=== PATIENT | male | born 1945 | race Caucasian/White ===

== ENCOUNTER 2020-01-09 07:36 | Inpatient (IN) | payer MEDICARE ==
[~2020-01-09] VITALS: Ht 182.9 cm; Wt 103.1 kg
[2020-01-09 08:54] LABS: CREATININE 1.9 mg/dL (0.5-1.5); POTASSIUM 3.4 mmol/L (3.5-5.1)
[2020-01-09 08:55] LABS: INR 1.71 (0.85-1.15); PARTIAL THROMBOPLASTIN TIME 31.9 SEC (26.3-35.5); PROTHROMBIN TIME 17.6 SEC (9.6-11.6)
[2020-01-09 08:58] LABS: ALBUMIN 2.2 g/dL (3.5-5.0); BILIRUBIN,TOTAL 6.8 mg/dL (0.2-1.0); TOTAL PROTEIN, SERUM 5.6 g/dL (6.0-8.3)
[2020-01-09] MEDS ORDERED: SODIUM CHLORIDE 0.9% 1000ML 1,000 ML IV ONE (09:25)
[2020-01-09 09:51] LABS: BASOPHILS % (AUTO) 0.1 % (0.0-5.0); EOSINOPHILS % (AUTO) 0.4 % (0.0-8.0); HEMATOCRIT 29.4 % (42-54); LYMPHOCYTES % (AUTO) 9.4 % (21.0-51.0); MEAN CORPUSCULAR HEMOGLOBIN 34.3 pg (27.0-33.0); MONOCYTES % (AUTO) 8.8 % (3.0-13.0); PLATELET COUNT (AUTO) 83 K/uL (130-400); RED CELL DISTRIBUTION WIDTH 16.2 % (11.0-15.5); WHITE BLOOD COUNT (AUTO) 6.9 K/uL (4.8-10.8)
[2020-01-09] MEDS ORDERED: CEFTRIAXONE SODIUM 1 GM ONE (10:09)
[2020-01-09] MEDS ORDERED: SODIUM CHLORIDE 0.9% 50 ML IV ONE (10:09)
[2020-01-09 10:40] LABS: B-TYPE NATRIURETIC PEPTIDE 74 pg/mL (0-100)
[2020-01-09 11:04] LABS: APPEARANCE,URINE SL CLOUDY (CLEAR); BILIRUBIN,URINE LARGE (NEGATIVE); COLOR,URINE ORANGE (YELLOW); GLUCOSE, URINE (UA) 100 mg/dL (NEGATIVE); KETONES,URINE 15 mg/dL (NEGATIVE); LEUKOCYTE ESTERASE ,URINE TRACE (NEGATIVE); NITRATE,URINE POSITIVE (NEGATIVE); OCCULT BLOOD,URINE NEGATIVE (NEGATIVE); PROTEIN,URINE 100 mg/dL (NEGATIVE); UROBILINOGEN,URINE >=8.0 mg/dL (0.2-1.0)
[2020-01-09 12:26] LABS: BACTERIA,URINE Few /HPF (None Seen); RBC,URINE 0-1 /HPF (0-1)
[2020-01-09 13:15] VITALS: BP 112/66
[2020-01-09] MEDS ORDERED: VANCOMYCIN PROTOCOL PER PHARMACY IV SCH (14:30)
[2020-01-09] MEDS ORDERED: ALBUMIN (HUMAN) 5% 250 ML IV SCH (14:30)
[2020-01-09] MEDS ORDERED: COMPOUND IV REFRIGERATED 1 EACH IVSOLN MISC PRN (15:15)
[2020-01-09] MEDS ORDERED: POTASSIUM CHLORIDE 10MEQ/100ML 100 ML IV PRN (15:15)
[2020-01-09] MEDS ORDERED: LIDOCAINE HCL-MPF 1% 2ML VIAL IV PRN (15:15)
[2020-01-09] MEDS ORDERED: MAGNESIUM 2GM PREMIX 50ML 50 ML IV PRN (15:15)
[2020-01-09 15:22] LABS: HEMOGLOBIN A1C 3.7 % (4.0-6.0)
[2020-01-09 15:28] LABS: AMPHET/METH SCREEN,URINE NEGATIVE (NEGATIVE); BARBITURATE SCREEN, URINE NEGATIVE (NEGATIVE); BENZODIAZEPINES SCREEN,URINE NEGATIVE (NEGATIVE); CANNABINOID SCREEN,URINE NEGATIVE (NEGATIVE); COCAINE SCREEN,URINE NEGATIVE (NEGATIVE); OPIATE SCREEN,URINE NEGATIVE (NEGATIVE); PHENCYCLIDINE SCREEN,URINE NEGATIVE (NEGATIVE)
[2020-01-09] MEDS ORDERED: VANCOMYCIN 1.5 GM in SODIUM CHLORIDE 0.9% 250 ML IV SCH (15:30)
[2020-01-09 16:00] VITALS: BP 110/77
[2020-01-09 16:04] LABS: % IRON SATURATION 95.1 % (30-44)
[2020-01-09] MEDS: SODIUM CHLORIDE 0.9% 1000ML 1,000 ML IV SCH ×2 (16:27→21:01)
[2020-01-09] MEDS ORDERED: DEXTROSE 5%-LACTATED RINGERS 1,000 ML IV SCH (17:15)
[2020-01-09 20:00] VITALS: BP 102/59
[2020-01-09] MEDS: POTASSIUM CHLORIDE 20 MEQ ERTAB PO PRN (20:08)
[2020-01-09] MEDS: LACTULOSE 20 GM/30 ML UDCUP PO SCH (20:08)
[2020-01-09] MEDS: FAMOTIDINE/PF 20 MG/2 ML VIAL IV SCH (20:08)
[2020-01-09] MEDS ORDERED: LACTULOSE 20 GM/30 ML UDCUP PO SCH (21:00)
[2020-01-09 21:02] LABS: SODIUM,URINE RANDOM < 15 mmol/l (40-220)
[2020-01-09] MEDS: CEFTRIAXONE SODIUM 1 GM IVP SCH (21:02)
[2020-01-09 21:05] LABS: CREATININE,URINE RANDOM 580 mg/dL (30-135)
[2020-01-09] MEDS ORDERED: GLUCAGON 1MG KIT 1 MG ML IM PRN (23:00)
[2020-01-09] MEDS ORDERED: DEXTROSE 50%-WATER 50 ML DISP.SYRIN IV PRN (23:00)
[2020-01-10] VITALS: BP 108/50
[2020-01-10 04:00] VITALS: BP 109/50
[2020-01-10 06:22] LABS: BASOPHILS % (AUTO) 0.2 % (0.0-5.0); EOSINOPHILS % (AUTO) 1.3 % (0.0-8.0); HEMATOCRIT 27.5 % (42-54); LYMPHOCYTES % (AUTO) 13.2 % (21.0-51.0); MEAN CORPUSCULAR HEMOGLOBIN 33.7 pg (27.0-33.0); MEAN CORPUSCULAR HGB CONC 34.5 g/dL (32.0-36.0); MEAN CORPUSCULAR VOLUME 97.5 fL (79-99); MONOCYTES % (AUTO) 9.8 % (3.0-13.0); NEUTROPHILS % (AUTO) 74.8 % (40.0-77.0); PLATELET COUNT (AUTO) 69 K/uL (130-400); RED BLOOD CELL COUNT(AUTO) 2.82 MIL/uL (4.50-6.20); RED CELL DISTRIBUTION WIDTH 15.9 % (11.0-15.5)
[2020-01-10 06:34] LABS: INR 1.8 (0.85-1.15); PROTHROMBIN TIME 18.5 SEC (9.6-11.6)
[2020-01-10 06:54] LABS: ALBUMIN 1.8 g/dL (3.5-5.0); CREATININE 1.8 mg/dL (0.5-1.5); POTASSIUM 3.5 mmol/L (3.5-5.1); TOTAL PROTEIN, SERUM 4.6 g/dL (6.0-8.3)
[2020-01-10] MEDS: SODIUM CHLORIDE 0.9% 1000ML 1,000 ML IV SCH (07:01)
[2020-01-10 08:00] VITALS: BP 91/51
[2020-01-10] MEDS ORDERED: ENOXAPARIN SODIUM 30 MG/0.3 ML SQ SCH (09:00)
[2020-01-10] MEDS: CEFTRIAXONE SODIUM 1 GM IVP SCH ×2 (09:54→21:25)
[2020-01-10] MEDS: LACTULOSE 20 GM/30 ML UDCUP PO SCH ×3 (09:54→21:25)
[2020-01-10] MEDS: VANCOMYCIN 1GM+NS 250ML 250 ML IV SCH (09:58)
[2020-01-10 12:00] VITALS: BP 106/48
[2020-01-10 16:00] VITALS: BP 105/55
--- NOTE | 2020-01-10 19:00 | NUR ---
CONSENT Consent for Paracentesis obtained per Francisco ADAMS.
--- NOTE | 2020-01-10 19:00 | NUR ---
cm note met with patient and states resides at home alone, currently due to his significant other is at a snf, he is unable to remember which facility she is at. but her name is Madison flores she has been at [facility] in the past, but not there now. son is nidhi Hauser from [place], ph# [phone]. pt states he has a walker, w/c bsc, and hospital bed, no hh, no provider assistance. does have a friend amaris kowalski, but no phone #.and has been weaker lately, discussed snf as an option for pt, states he will think about it, and let cm know. Addendum: 01/10/20 at 1906 by VINICIO BROWN CM Amended: Links added.
[2020-01-10] MEDS: PHYTONADIONE 10 MG/1 ML AMP IM SCH (19:31)
[2020-01-10 20:00] VITALS: BP 108/72
[2020-01-10] MEDS: FAMOTIDINE/PF 20 MG/2 ML VIAL IV SCH (21:25)
[2020-01-11] VITALS (12 sets, daily range): BP systolic 90–115; BP diastolic 47–71
--- NOTE | 2020-01-11 03:47 | NUR ---
URINE Urine specimen sent to lab.
[2020-01-11 04:01] LABS: APPEARANCE,URINE SL CLOUDY (CLEAR); BILIRUBIN,URINE LARGE (NEGATIVE); GLUCOSE, URINE (UA) 100 mg/dL (NEGATIVE); KETONES,URINE 5 mg/dL (NEGATIVE); LEUKOCYTE ESTERASE ,URINE NEGATIVE (NEGATIVE); NITRATE,URINE POSITIVE (NEGATIVE); OCCULT BLOOD,URINE NEGATIVE (NEGATIVE); PH,URINE 5.5 (5.0-8.0); PROTEIN,URINE 30 mg/dL (NEGATIVE)
[2020-01-11] MEDS: VANCOMYCIN 1GM+NS 250ML 250 ML IV SCH ×2 (04:01→20:57)
[2020-01-11 04:04] LABS: COLOR,URINE BROWN (YELLOW)
[2020-01-11 04:11] LABS: BACTERIA,URINE None Seen /HPF (None Seen); RBC,URINE 0-1 /HPF (0-1)
[2020-01-11 04:12] LABS: MUCUS,URINE Rare LPF (None Seen); SQUAMOUS EPITHELIAL CELL,UR Few /HPF (0-2)
[2020-01-11 06:04] LABS: BASOPHILS % (AUTO) 0.2 % (0.0-5.0); EOSINOPHILS % (AUTO) 1.7 % (0.0-8.0); HEMATOCRIT 26.2 % (42-54); LYMPHOCYTES % (AUTO) 13.5 % (21.0-51.0); MEAN CORPUSCULAR HEMOGLOBIN 34.8 pg (27.0-33.0); MEAN CORPUSCULAR HGB CONC 35.5 g/dL (32.0-36.0); MEAN CORPUSCULAR VOLUME 98.1 fL (79-99); MONOCYTES % (AUTO) 12.5 % (3.0-13.0); NEUTROPHILS % (AUTO) 71.7 % (40.0-77.0); PLATELET COUNT (AUTO) 64 K/uL (130-400); RED BLOOD CELL COUNT(AUTO) 2.67 MIL/uL (4.50-6.20); RED CELL DISTRIBUTION WIDTH 16.1 % (11.0-15.5); WHITE BLOOD COUNT (AUTO) 4.7 K/uL (4.8-10.8)
[2020-01-11 06:19] LABS: ALBUMIN 1.7 g/dL (3.5-5.0); BILIRUBIN,TOTAL 3.8 mg/dL (0.2-1.0); CREATININE 1.7 mg/dL (0.5-1.5); MAGNESIUM 1.3 mg/dL (1.80-2.40); PHOSPHORUS 2.8 mg/dL (2.5-4.9); POTASSIUM 3.3 mmol/L (3.5-5.1); TOTAL PROTEIN, SERUM 4.5 g/dL (6.0-8.3); URIC ACID 5.9 mg/dL (2.6-7.2)
[2020-01-11] MEDS: POTASSIUM CHLORIDE 20 MEQ ERTAB PO PRN ×3 (06:24→16:40)
[2020-01-11] MEDS: MAGNESIUM 2GM PREMIX 50ML 50 ML IV SCH ×2 (06:32→09:11)
[2020-01-11 06:42] LABS: % IRON SATURATION 92.7 % (30-44)
[2020-01-11 06:57] LABS: INR 1.8 (0.85-1.15); PARTIAL THROMBOPLASTIN TIME 36.5 SEC (26.3-35.5); PROTHROMBIN TIME 18.5 SEC (9.6-11.6)
--- NOTE | 2020-01-11 08:00 | NUR ---
NOTE AAOX3. DENIES PAIN BUT REPORTS DISCOMFORT TO RIGHT KNEE. HE CAME IN WITH ANASARCA. DX CIRRHOSIS AND ALSO WITH ASCITES. 4+ PITTING EDEMA BLE FROM THIGHS TO FEET. STATES HE HAS BEEN DECLINING FOR LAST FEW MONTHS, STARTING WITH RIGHT KNEE PAIN THEN STARTING TO USE CANE TO USE WALKER AND NOW BEDRIDDEN. STATES HE CONSUMED ALCOHOL BUT STOPPED ABOUT 6 MONTHS AGO. NO DISTRESS OR SOB. BBS CLEAR BUT ASCITES INTERFERES WITH HIS BREATHING.
[2020-01-11] MEDS: LACTULOSE 20 GM/30 ML UDCUP PO SCH ×3 (09:00→20:58)
[2020-01-11] MEDS: FOLIC ACID/VITAMIN B COMP W-C 1 CAP TAB PO SCH (09:05)
[2020-01-11] MEDS: CEFTRIAXONE SODIUM 1 GM IVP SCH ×2 (09:05→20:58)
--- NOTE | 2020-01-11 11:22 | NUR ---
NOTE SPOKE TO DR MAYA RIVAS ABOUT CONSULT. HE TOLD ME HE HAD SPOKE TO SOMEONE YESTERDAY AND ORDERED ABD US AND LABS. SAYS THAT CIRRHOSIS IS AN OUTPATIENT WORKUP AND THAT HE WILL SEE THE ULTRASOUND RESULTS AND LAB WORK RESULTS AND CALL ME BACK LATER.
[2020-01-11] MEDS: PHYTONADIONE 10 MG/1 ML AMP IM SCH (13:30)
--- NOTE | 2020-01-11 14:00 | NUR ---
NOTE DR MORTON PERFORMED PARACENTESIS AT BEDSIDE. PATIENT TOLERATED PROCEDURE WITH MINNIMAL DISCOMFORT OR PAIN. 4.6 LITERS REMOVED. PATIENT WITH SBP STEADY IN THE 90'S. BEDBOUND. NO OTHER PROBLEMS VOICED AT THIS TIME. DR MORTON ORDERED TESTING TO BE DONE ON ASCITES FLUID.
[2020-01-11] MEDS ORDERED: ALBUMIN (HUMAN) 25% 50 ML IV SCH ×2 (14:45→15:30)
--- NOTE | 2020-01-11 15:45 | NUR ---
CM NOTE NEW ORDER FOR SNF FOR REHAB. MEET WITH PATIENT IN ROOM. PER PATIENT, "IF IT WASNT FOR MY KNEE PAIN, ID BE WALKING AND I WOULD NOT HAVE TO GO TO SNF". PATIENT INFORMED OF MONITORING FOR CIRRHOSIS OF LIVER REQUIRED SINCE PARACENTESIS NEEDED AND +4 WEEPING PITTING EDEMA NOTED TO BLE. OPTIONS BASED ON INSURANCE FOR SNF GIVEN TO PATIENT. PER PATIENT, WILL DISCUSS OPTIONS WITH SON AND WILL MADE DECISION. I WILL FOLLOW UP WITH PATIENT. INFORMED THAT IF HE MADE DECISION HE CAN TELL PRIMARY NURSE WELL. DL ADAMS, PRIMARY NURSE, AWARE TO CALL ME WITH SNF OPTIONS IF PATIENT MAKES DECISION.
[2020-01-11] MEDS ORDERED: ALBUMIN (HUMAN) 25% 400 ML IV ONE (16:30)
[2020-01-11] MEDS ORDERED: ALBUMIN (HUMAN) 25% 200 ML IV ONE (16:30)
[2020-01-11] MEDS: THIAMINE HCL 100 MG TABLET PO SCH (16:39)
[2020-01-11 16:41] LABS: GLUCOSE,BODY FLUID 123 mg/dL (1-40)
[2020-01-11 16:51] LABS: ALBUMIN,BODY FLUID < 0.6 g/dL
[2020-01-11 18:18] LABS: APPEARANCE BODY FLUID SLIGHTLY CLOUDY (CLEAR); COLOR,BODY FLUID YELLOW (LT YELLOW); SPECIMENTYPE,BODY FLUID PLEURAL; TOTAL VOLUME,BODY FLUID 885 mL
[2020-01-11 18:19] LABS: BODY FLUID RBC 98 /cu. mm.; BODY FLUID WBC 16 /cu. mm.
[2020-01-11 18:58] LABS: BF LYMPHOCYTE 30 %; BF MESOTHELIAL 2 %; BF MONOCYTE 7 %
--- NOTE | 2020-01-11 19:00 | NUR ---
SITE Paracentesis puncture site oozing serous fluid,covered with 4x4 gauze and paper tape.
[2020-01-11] MEDS: FAMOTIDINE/PF 20 MG/2 ML VIAL IV SCH (20:58)
--- NOTE | 2020-01-11 22:52 | NUR ---
NAUSEA Pt c/o of nausea,nikki Tai Np.
--- NOTE | 2020-01-11 22:55 | NUR ---
BETH mao Np called back,updated on pt.s status.
[2020-01-11] MEDS ORDERED: ONDANSETRON HCL 4 MG/2 ML VIAL IVP PRN (23:00)
[2020-01-12] VITALS (7 sets, daily range): BP systolic 95–112; BP diastolic 60–70
--- NOTE | 2020-01-12 00:15 | NUR ---
FF UP Pt asleep now,no signs of distress noted.
--- NOTE | 2020-01-12 01:24 | NUR ---
TURN Pt repositioned to his rt side,denies pain or discomfort.
--- NOTE | 2020-01-12 01:39 | NUR ---
JASON CARPENTER Late Entry-Spoke to brenda from pharmacy on 01/10/2020 re Jason carpenter,he said to draw trough on 01/12/2020 at 3 pm.
[2020-01-12 06:08] LABS: BASOPHILS % (AUTO) 0.5 % (0.0-5.0); EOSINOPHILS % (AUTO) 2.1 % (0.0-8.0); HEMATOCRIT 21.9 % (42-54); MEAN CORPUSCULAR HEMOGLOBIN 34.2 pg (27.0-33.0); MEAN CORPUSCULAR HGB CONC 34.7 g/dL (32.0-36.0); MEAN CORPUSCULAR VOLUME 98.6 fL (79-99); MONOCYTES % (AUTO) 16.1 % (3.0-13.0); NEUTROPHILS % (AUTO) 67.3 % (40.0-77.0); PLATELET COUNT (AUTO) 43 K/uL (130-400); RED BLOOD CELL COUNT(AUTO) 2.22 MIL/uL (4.50-6.20); RED CELL DISTRIBUTION WIDTH 15.9 % (11.0-15.5); WHITE BLOOD COUNT (AUTO) 1.9 K/uL (4.8-10.8)
[2020-01-12 06:27] LABS: ALBUMIN 2.6 g/dL (3.5-5.0); BILIRUBIN,TOTAL 3.1 mg/dL (0.2-1.0); CREATININE 1.3 mg/dL (0.5-1.5); MAGNESIUM 1.8 mg/dL (1.80-2.40); POTASSIUM 3.6 mmol/L (3.5-5.1); TOTAL PROTEIN, SERUM 4.4 g/dL (6.0-8.3)
[2020-01-12] MEDS: POTASSIUM CHLORIDE 10% ELIXIR 20 MEQ/15 ML UDCUP PO PRN (06:33)
[2020-01-12] MEDS: MAGNESIUM 2GM PREMIX 50ML 50 ML IV SCH (06:34)
[2020-01-12] MEDS: THIAMINE HCL 100 MG TABLET PO SCH (09:53)
[2020-01-12] MEDS: CEFTRIAXONE SODIUM 1 GM IVP SCH ×2 (09:53→20:35)
[2020-01-12] MEDS: LACTULOSE 20 GM/30 ML UDCUP PO SCH ×3 (09:54→20:34)
[2020-01-12] MEDS: FOLIC ACID/VITAMIN B COMP W-C 1 CAP TAB PO SCH (09:55)
[2020-01-12 10:12] LABS: HEPATITIS A ANTIBODY IGM Negative (Negative); HEPATITIS B CORE IGM Negative (Negative); HEPATITIS Bs ANTIGEN SCREEN P Negative (Negative)
--- NOTE | 2020-01-12 11:30 | NUR ---
CM NOTE TRIED TO MEET WITH PATIENT IN ROOM ABOUT IF DECISION FOR SNF MADE, PATIENT ASLEEP. WILL FOLLOW UP LATER.
--- NOTE | 2020-01-12 16:00 | NUR ---
CM NOTE MEET WITH PATIENT IN ROOM. PER PATIENT, NO DECISION HAS BEEN MADE AND IS LEANING MORE ON GOING HOME. PATIENT UNABLE TO AMBULATE TO BATHROOM OR GET OOB TO CHAIR ON HIS OWN. PATIENT CONTINUES WITH +4 PITTING EDEMA TO BLE. IN SNF AND PATIENT WOULD BE ALONE AT HOME. DISCUSSED NEED FOR ASSISTANCE. PER PATIENT, WILL THINK ABOUT SNF AND WILL DECIDE TOMORROW. CONVERSATIONS BETWEEN PATIENT AND I REPORTED TO PRIMARY NURSE, HELLEN ADAMS. WILL FOLLOW UP WITH PATIENT TOMORROW FOR SNF DECISION.
[2020-01-12] MEDS ORDERED: VANCOMYCIN 1GM+NS 250ML 250 ML IV SCH (16:45)
[2020-01-12] MEDS: FAMOTIDINE/PF 20 MG/2 ML VIAL IV SCH (20:34)
[2020-01-12] MEDS: FUROSEMIDE 40 MG TABLET PO SCH (20:35)
[2020-01-13 04:14] VITALS: BP 112/62
--- NOTE | 2020-01-13 04:41 | NUR ---
EDEMA Pt cont with pitting edema to both legs,pt ahs blisters to rt foot and seeping fluids.Both arms swelling seemed to have subsided slightly.Pt is incontinent of urine and stool.Aleisha care rendered per staff.Repositioned in bed,waffle mattress on.
[2020-01-13 05:32] LABS: BASOPHILS % (AUTO) 0.6 % (0.0-5.0); EOSINOPHILS % (AUTO) 2.3 % (0.0-8.0); HEMATOCRIT 24.9 % (42-54); LYMPHOCYTES % (AUTO) 11.1 % (21.0-51.0); MEAN CORPUSCULAR HEMOGLOBIN 34.3 pg (27.0-33.0); MEAN CORPUSCULAR HGB CONC 34.9 g/dL (32.0-36.0); MONOCYTES % (AUTO) 15.7 % (3.0-13.0); NEUTROPHILS % (AUTO) 69.7 % (40.0-77.0); PLATELET COUNT (AUTO) 52 K/uL (130-400); RED BLOOD CELL COUNT(AUTO) 2.54 MIL/uL (4.50-6.20); RED CELL DISTRIBUTION WIDTH 15.9 % (11.0-15.5); WHITE BLOOD COUNT (AUTO) 3.5 K/uL (4.8-10.8)
[2020-01-13 05:51] LABS: ALBUMIN 2.5 g/dL (3.5-5.0); BILIRUBIN,TOTAL 3.5 mg/dL (0.2-1.0); CREATININE 1.3 mg/dL (0.5-1.5); POTASSIUM 3.1 mmol/L (3.5-5.1); TOTAL PROTEIN, SERUM 4.6 g/dL (6.0-8.3)
[2020-01-13] MEDS: POTASSIUM CHLORIDE 10% ELIXIR 20 MEQ/15 ML UDCUP PO PRN ×3 (06:09→15:11)
[2020-01-13 07:00] VITALS: BP 105/63
[2020-01-13] MEDS ORDERED: ALBUMIN (HUMAN) 25% 400 ML IV ONE (09:00)
[2020-01-13] MEDS: THIAMINE HCL 100 MG TABLET PO SCH (11:01)
[2020-01-13] MEDS: CEFTRIAXONE SODIUM 1 GM IVP SCH ×2 (11:01→21:39)
[2020-01-13] MEDS: FOLIC ACID/VITAMIN B COMP W-C 1 CAP TAB PO SCH (11:01)
[2020-01-13] MEDS: SPIRONOLACTONE 25 MG TAB PO SCH (11:01)
[2020-01-13] MEDS: FUROSEMIDE 40 MG TABLET PO SCH (11:02)
[2020-01-13] MEDS: LACTULOSE 20 GM/30 ML UDCUP PO SCH ×3 (11:02→21:39)
[2020-01-13 12:00] VITALS: BP 113/71
--- NOTE | 2020-01-13 12:00 | NUR ---
CM NOTE MEET WITH PATIENT IN ROOM, PATIENT HAS STATED THAT HE THOUGHT PT WAS DOING SUCH A GREAT JOB WITH HIM THAT HE THINKS HE DOES NOT NEED TO GO TO SNF. SEE PT NOTES REGARDING CARE, PATIENT ONLY ABLE TO DO EDGE OF BED EXERCISES. WILL FOLLOW UP WITH PATIENT TOMORROW. ASKED PERMISSION TO CALL SINCERE, SON FROM OUT OF TOWN TO ASSIST WITH SNF DECISION, PATIENT DENIED. CONVERSATIONS BETWEEN PATIENT AND I REPORTED TO PRIMARY NURSE, HARLEEN ADAMS.
--- NOTE | 2020-01-13 12:45 | NUR ---
1213 went into patients room to give BPCI Letter. Patient was asleep, I placed BPCI Letter on bedside table.
[2020-01-13] MEDS ORDERED: ALBUMIN (HUMAN) 25% 100 ML IV ONE (15:45)
[2020-01-13] MEDS ORDERED: ALBUMIN (HUMAN) 25% 400 ML IV SCH ×2 (15:45→16:45)
[2020-01-13 16:00] VITALS: BP 109/63
--- NOTE | 2020-01-13 16:30 | NUR ---
[facility] CONSULT PATIENT ASSESSED REQUESTED: PATIENT PRESENTS WITH VENOUS ULCER TO RIGHT FOOT DORSAL; [facility] RECOMMENDATIONS SUBMITTED. Addendum: 01/14/20 at 1152 by HUNTER HURD LVN LVN W Amended: Links added.
[2020-01-13 19:00] VITALS: BP 114/49
[2020-01-13] MEDS: FAMOTIDINE/PF 20 MG/2 ML VIAL IV SCH (21:39)
[2020-01-13] MEDS: VANCOMYCIN 1GM+NS 250ML 250 ML IV SCH (21:39)
[2020-01-13 23:00] VITALS: BP 111/65
[2020-01-14 03:00] VITALS: BP 114/64
[2020-01-14 05:54] LABS: BASOPHILS % (AUTO) 0.3 % (0.0-5.0); EOSINOPHILS % (AUTO) 2.7 % (0.0-8.0); HEMATOCRIT 24.5 % (42-54); LYMPHOCYTES % (AUTO) 11.5 % (21.0-51.0); MEAN CORPUSCULAR HEMOGLOBIN 34.3 pg (27.0-33.0); MEAN CORPUSCULAR HGB CONC 34.3 g/dL (32.0-36.0); MONOCYTES % (AUTO) 18.9 % (3.0-13.0); NEUTROPHILS % (AUTO) 65.9 % (40.0-77.0); PLATELET COUNT (AUTO) 49 K/uL (130-400); RED BLOOD CELL COUNT(AUTO) 2.45 MIL/uL (4.50-6.20); RED CELL DISTRIBUTION WIDTH 16.4 % (11.0-15.5)
[2020-01-14 06:05] LABS: ALBUMIN 3.2 g/dL (3.5-5.0); BILIRUBIN,TOTAL 4.2 mg/dL (0.2-1.0); CREATININE 1.4 mg/dL (0.5-1.5); POTASSIUM 3.7 mmol/L (3.5-5.1); TOTAL PROTEIN, SERUM 4.8 g/dL (6.0-8.3)
[2020-01-14] MEDS ORDERED: HONEY 1 APPL/ML TUBE TP PRN (06:15)
[2020-01-14 07:00] VITALS: BP 134/53
[2020-01-14 08:39] LABS: BASOPHILS % (MANUAL) 2 % (0-2); EOSINOPHILS % (MANUAL) 4 % (1-6); LYMPHOCYTES % (MANUAL) 11 % (22-44); MONOCYTES % (MANUAL) 9 % (2-9); SEGMENTED NEUTROPHILS % 74 % (40-70)
[2020-01-14 08:40] LABS: MAN.DIFF COMMENT-IMPRESSION MANUAL DIFFERENTIAL
[2020-01-14] MEDS: LACTULOSE 20 GM/30 ML UDCUP PO SCH ×3 (10:20→20:47)
[2020-01-14] MEDS: CEFTRIAXONE SODIUM 1 GM IVP SCH ×2 (10:20→20:47)
[2020-01-14] MEDS: FOLIC ACID/VITAMIN B COMP W-C 1 CAP TAB PO SCH (10:20)
[2020-01-14] MEDS: FUROSEMIDE 40 MG TABLET PO SCH (10:21)
[2020-01-14] MEDS: SPIRONOLACTONE 25 MG TAB PO SCH (10:21)
[2020-01-14] MEDS: THIAMINE HCL 100 MG TABLET PO SCH (10:21)
[2020-01-14 11:00] VITALS: BP 123/66
[2020-01-14 16:00] VITALS: BP 109/68
--- NOTE | 2020-01-14 17:53 | NUR ---
CM NOTE NEW REFERRAL FOR [facility]. MEET WITH PATIENT IN ROOM, IONA VERBAL CONSENT GIVE. INFORMED ADRIANA EDWARD FROM [facility] ABOUT NEW [facility] REFERRAL, TO MEET WITH PATIENT. CLINICALS AND INJURY FAXED AND RECEIVED. POSSIBLE DC TO [facility] TOMORROW PER DR. ROACH.
--- NOTE | 2020-01-14 18:37 | NUR ---
picc order fax [facility]. called and informed
[2020-01-14 19:51] LABS: INR 2.12 (0.85-1.15); PARTIAL THROMBOPLASTIN TIME 47.5 SEC (26.3-35.5); PROTHROMBIN TIME 21.6 SEC (9.6-11.6)
[2020-01-14 20:00] VITALS: BP 113/67
[2020-01-14] MEDS: VANCOMYCIN 1GM+NS 250ML 250 ML IV SCH (20:47)
[2020-01-14] MEDS: FAMOTIDINE/PF 20 MG/2 ML VIAL IV SCH (20:47)
[2020-01-15] VITALS: BP 110/82
[2020-01-15 04:00] VITALS: BP 128/56
[2020-01-15 08:43] LABS: HEMATOCRIT 24.7 % (42-54); MEAN CORPUSCULAR HEMOGLOBIN 34.7 pg (27.0-33.0); MEAN CORPUSCULAR HGB CONC 34.8 g/dL (32.0-36.0); MEAN CORPUSCULAR VOLUME 99.6 fL (79-99); PLATELET COUNT (AUTO) 57 K/uL (130-400); RED BLOOD CELL COUNT(AUTO) 2.48 MIL/uL (4.50-6.20); RED CELL DISTRIBUTION WIDTH 15.9 % (11.0-15.5); WHITE BLOOD COUNT (AUTO) 4.5 K/uL (4.8-10.8)
[2020-01-15 08:54] LABS: CREATININE 1.4 mg/dL (0.5-1.5); POTASSIUM 3.3 mmol/L (3.5-5.1)
[2020-01-15] MEDS: LACTULOSE 20 GM/30 ML UDCUP PO SCH ×2 (09:00→14:00)
[2020-01-15 09:05] VITALS: BP 111/67
[2020-01-15 09:37] LABS: INR 2.03 (0.85-1.15); PROTHROMBIN TIME 20.7 SEC (9.6-11.6)
[2020-01-15] MEDS: THIAMINE HCL 100 MG TABLET PO SCH (10:25)
[2020-01-15] MEDS: POTASSIUM CHLORIDE 20 MEQ ERTAB PO PRN (10:26)
[2020-01-15] MEDS: SPIRONOLACTONE 25 MG TAB PO SCH (10:26)
[2020-01-15] MEDS: CEFTRIAXONE SODIUM 1 GM IVP SCH (10:26)
[2020-01-15] MEDS: FUROSEMIDE 40 MG TABLET PO SCH (10:26)
[2020-01-15] MEDS: FOLIC ACID/VITAMIN B COMP W-C 1 CAP TAB PO SCH (10:26)
[2020-01-15 11:36] VITALS: BP 111/74
--- NOTE | 2020-01-15 12:24 | NUR ---
CM NOTE PT/INR ABNORMAL, PENDING PLACEMENT OF PICC LINE. ADRIANA FROM [facility] MADE AWARE. PER ADRIANA, PICC LINE CAN BE DONE AT [facility]. DR. ROACH MADE AWARE, WILL DC PATIENT TO [facility] TODAY.
[2020-01-15] MEDS: POTASSIUM CHLORIDE 10% ELIXIR 20 MEQ/15 ML UDCUP PO PRN (17:15)
== END 2020-01-15 17:22 | DRG 871 ==
LOC: EDBD 07:36 → EDH 07:36 → EDHIP 11:01 → 3BH 13:15
PROVIDERS: ADMIT Internal Medicine; ATTEND Internal Medicine
PROC: 0W9G3ZZ Drainage of Peritoneal Cavity, Percutaneous Approach (ICD-10-PCS; principal; 2020-01-11)
DX: A41.89 Other specified sepsis (principal); G92 Toxic encephalopathy; E43 Unspecified severe protein-calorie malnutrition; E87.2 Acidosis; N39.0 Urinary tract infection, site not specified; K76.6 Portal hypertension; J98.11 Atelectasis; D68.9 Coagulation defect, unspecified; N17.9 Acute kidney failure, unspecified; E87.1 Hypo-osmolality and hyponatremia; J90 Pleural effusion, not elsewhere classified; R18.8 Other ascites; K72.90 Hepatic failure, unspecified without coma; E83.42 Hypomagnesemia; D69.59 Other secondary thrombocytopenia; R09.02 Hypoxemia; E87.70 Fluid overload, unspecified; E11.649 Type 2 diabetes mellitus with hypoglycemia without coma; R65.20 Severe sepsis without septic shock; Z68.30 Body mass index [BMI] 30.0-30.9, adult; B95.7 Other staphylococcus as the cause of diseases classified elsewhere; B96.89 Other specified bacterial agents as the cause of diseases classified elsewhere; D63.1 Anemia in chronic kidney disease; E11.22 Type 2 diabetes mellitus with diabetic chronic kidney disease; E66.9 Obesity, unspecified; E87.6 Hypokalemia; F10.10 Alcohol abuse, uncomplicated; I12.9 Hypertensive chronic kidney disease with stage 1 through stage 4 chronic kidney disease, or unspecified chronic kidney disease; K70.30 Alcoholic cirrhosis of liver without ascites; N18.9 Chronic kidney disease, unspecified; S51.811A Laceration without foreign body of right forearm, initial encounter; Z74.01 Bed confinement status; Z87.891 Personal history of nicotine dependence; Z85.46 Personal history of malignant neoplasm of prostate; Z93.0 Tracheostomy status; Z83.3 Family history of diabetes mellitus
CPT/HCPCS: 36415; 71045; 76700; 80048; 80053; 80074; 80202; 80305; 81001; 82042; 82140; 82270; 82550; 82570; 82728; 82945; 82948; 83036; 83540; 83550; 83605; 83615; 83690; 83735; 83880; 84100; 84145; 84156; 84157; 84300; 84484; 84550; 85025; 85027; 85610; 85730; 87040; 87071; 87077; 87088; 87186; 87205; 87804; 89051; 93005; 93970; 97039; C1729; G0378; J0696; J3370; J3430; J3475; J3490; J7030; P9046; P9047